=== PATIENT | female | born 1990 | race Caucasian/White ===

== ENCOUNTER 2017-02-02 16:38 | Emergency (ER) | payer OTHER ==
[~2017-02-02] VITALS: Ht 167.6 cm; Wt 61.0 kg
[2017-02-02 19:28] VITALS: BP 115/80
== END 2017-02-02 19:28 | disposition home or self-care (01) ==
LOC: ED 16:38
DX: R11.10 Vomiting, unspecified (principal); R19.7 Diarrhea, unspecified; F17.210 Nicotine dependence, cigarettes, uncomplicated; Z88.0 Allergy status to penicillin; Z71.6 Tobacco abuse counseling
CPT/HCPCS: 99406

== ENCOUNTER 2018-04-03 15:58 | Emergency (ER) | payer OTHER ==
[~2018-04-03] VITALS: Ht 167.6 cm; Wt 61.4 kg
[2018-04-03 18:20] VITALS: BP 129/71
== END 2018-04-03 18:20 | disposition home or self-care (01) ==
LOC: ED 15:58
DX: J20.9 Acute bronchitis, unspecified (principal)
CPT/HCPCS: J1100; J7613; J7644; Q0092

== ENCOUNTER 2019-04-05 15:45 | Emergency (ER) | payer OTHER ==
[~2019-04-05] VITALS: Ht 167.6 cm; Wt 63.5 kg
[2019-04-05 15:49] VITALS: Ht 167.6 cm; Wt 63.5 kg
[2019-04-05 16:20] VITALS: BP 109/78
== END 2019-04-05 16:20 | disposition home or self-care (01) ==
LOC: ED 15:45
DX: S30.1XXA Contusion of abdominal wall, initial encounter (principal); S31.133A Puncture wound of abdominal wall without foreign body, right lower quadrant without penetration into peritoneal cavity, initial encounter; M79.604 Pain in right leg; Z88.0 Allergy status to penicillin; W45.8XXA Other foreign body or object entering through skin, initial encounter; Y93.39 Activity, other involving climbing, rappelling and jumping off; Y92.89 Other specified places as the place of occurrence of the external cause; Y99.8 Other external cause status
CPT/HCPCS: 90715

== ENCOUNTER 2019-06-09 14:41 | Emergency (ER) | payer OTHER ==
[~2019-06-09] VITALS: Ht 167.6 cm; Wt 62.6 kg
[2019-06-09 14:51] VITALS: Ht 167.6 cm; Wt 62.6 kg
[2019-06-09 17:38] VITALS: BP 101/63
== END 2019-06-09 17:38 | disposition home or self-care (01) ==
LOC: ED 14:41
DX: T67.5XXA Heat exhaustion, unspecified, initial encounter (principal); Z88.0 Allergy status to penicillin; X58.XXXA Exposure to other specified factors, initial encounter; Y93.89 Activity, other specified; Y92.89 Other specified places as the place of occurrence of the external cause; Y99.8 Other external cause status
CPT/HCPCS: J1885; J7030

== ENCOUNTER 2019-08-26 12:35 | Emergency (ER) | payer OTHER ==
[~2019-08-26] VITALS: Ht 167.6 cm; Wt 64.6 kg
[2019-08-26 12:56] VITALS: Ht 167.6 cm; Wt 64.6 kg
[2019-08-26 14:43] VITALS: BP 108/63
== END 2019-08-26 15:32 | disposition home or self-care (01) ==
LOC: ED 12:35
DX: B34.9 Viral infection, unspecified (principal); Z88.0 Allergy status to penicillin
CPT/HCPCS: 87804

== ENCOUNTER 2019-12-05 14:14 | Emergency (ER) | payer OTHER ==
[~2019-12-05] VITALS: Ht 162.6 cm; Wt 62.1 kg
[2019-12-05 14:36] VITALS: BP 121/57; Ht 162.6 cm; Wt 62.1 kg
== END 2019-12-05 15:28 | disposition home or self-care (01) ==
LOC: ED 14:14
DX: M79.641 Pain in right hand (principal); M79.642 Pain in left hand; L98.9 Disorder of the skin and subcutaneous tissue, unspecified; Z88.0 Allergy status to penicillin

== ENCOUNTER 2020-09-16 10:05 | Emergency (ER) | payer OTHER, SELFPAY ==
[~2020-09-16] VITALS: Ht 162.6 cm; Wt 63.5 kg
[2020-09-16 10:18] VITALS: Ht 162.6 cm; Wt 63.5 kg
[2020-09-16 11:23] LABS: BASOPHIL % 0.5 % (0-2); PLATELET COUNT 150 x10^3mcL (130-400)
[2020-09-16 11:25] LABS: RED CELL DISTRIBUTION WIDTH 15.7 % (11.5-14.5)
[2020-09-16 11:32] LABS: microscopic required? YES; urine erythrocyte NEGATIVE (NEGATIVE)
[2020-09-16 11:38] LABS: CALCIUM 8.2 mg/dL (8.5-10.1); CARBON DIOXIDE 28.5 mmol/L (21-32); CHLORIDE SERUM 104 mmol/L (98-107); CREATININE SERUM 0.8 mg/dL (0.6-1.0); GFR1 > 60 mL/min; GLUCOSE SERUM 84 mg/dL (74-106); SODIUM SERUM 140 mmol/L (136-145)
[2020-09-16 11:42] LABS: ALBUMIN 3.4 g/dL (3.4-5.0); ALKALINE PHOSPHATASE 60 U/L (46-116); ALT/SGPT 19 U/L (14-59); AST/SGOT 17 U/L (15-37); BILIRUBIN TOTAL 0.21 mg/dL (0.20-1.00); TOTAL PROTEIN, SERUM 6.3 g/dL (6.4-8.2)
[2020-09-16 12:45] VITALS: BP 116/38
== END 2020-09-16 12:45 | disposition home or self-care (01) ==
LOC: ED 10:05
PROVIDERS: Emergency Medicine
DX: N39.0 Urinary tract infection, site not specified (principal); E86.0 Dehydration; Z88.0 Allergy status to penicillin
CPT/HCPCS: J1885; J7030; Q0092